=== PATIENT | female | born 1980 | race Caucasian/White ===

== ENCOUNTER 2018-12-10 07:47 | Emergency (ER) | payer BC ==
--- NOTE | 2018-12-10 08:09 | EDM.PDOC ---
ED HPI GENERAL MEDICAL PROBLEM - General Chief Complaint: Back Pain or Injury Stated Complaint: BACK PAIN Time Seen by Provider: 12/10/18 08:09 Source of Information: Reports: Patient History Limitations: Reports: No Limitations - History of Present Illness INITIAL COMMENTS - FREE TEXT/NARRATIVE: 38-year-old female presents to the ED with acute exacerbation of chronic low back pain. Patient states that she's been suffering with low back pain for about 17 years. Seem to have developed some trauma after 17 years ago and has a confirmed herniated disc on MRI done at that time. Back pain is been coming intermittently off and on for the last 17 years. However for the last 5- 6 week she's had constant pain that seems to be progressively worsening. Pain is primarily across both sides of her lower back and perhaps is slightly worse on the right side as compared to the left. Pain radiates down to the but talks and posterior lateral thighs on both sides but not below the knee. Patient has no change in bowel or bladder function and has control of both. Pain was so bad she could not sleep at all last night. 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 Onset: Gradual Onset Date: 10/23/18 Duration: Week(s):, Chronic, Getting Worse Location: Reports: Back (Increasing constant low back pain for the last 6 weeks) Quality: Reports: Ache, Pressure, Throbbing Severity: Severe Improves with: Reports: None Worsens with: Reports: None Context: Denies: Activity, Exercise, Lifting, Sick Contact, Trauma, Other Associated Symptoms: Reports: Weakness. Denies: No Other Symptoms, Confusion, Chest Pain, Cough, cough w sputum, Diaphoresis, Fever/Chills, Headaches, Loss of Appetite, Malaise, Nausea/Vomiting, Seizure, Shortness of Breath, Syncope Treatments [employer]ING [employer]PER[employer]OR: Reports: Acetaminophen, NSAIDS Bilateral Lower Back Pain Score (Numeric/FACES): 10 - Related Data Allergies Allergy/AdvReac Type Severity Reaction Status Date / Time No Known Allergies Allergy Verified 12/10/18 08:01 Home Meds: Home Meds Diclofenac Sodium [Voltaren] 50 mg PO TID #30 tab.ec 12/10/18 [Rx] Magnesium Oxide [Magnesium] 400 mg PO DAILY 12/10/18 [History] oxyCODONE HCl/Acetaminophen [Percocet 10-325 mg Tablet] 1 each PO Q4H #24 tablet 12/10/18 [Rx] predniSONE [Deltasone] 20 mg PO ASDIRECTED #18 tablet 12/10/18 [Rx] Past Medical History - Past Health History Medical/Surgical History: Denies Medical/Surgical History Musculoskeletal History: Reports: Back Pain, Chronic Other Musculoskeletal History: Herniated disc Social & Family History - Tobacco Use Smoking Status *Q: Never Smoker Second Hand Smoke Exposure: No - Caffeine Use Caffeine Use: Reports: None - Recreational Drug Use Recreational Drug Use: No - Living Situation & Occupation Occupation: Employed ED ROS GENERAL - Review of Systems Review Of Systems: See Below Constitutional: Reports: No Symptoms HEENT: Reports: No Symptoms Respiratory: Reports: No Symptoms Cardiovascular: Reports: No Symptoms Endocrine: Reports: Fatigue GI/Abdominal: Reports: No Symptoms : Reports: No Symptoms Musculoskeletal: Reports: Back Pain, Joint Pain Skin: Reports: No Symptoms (Occasional knees and hips) Neurological: Reports: Paresthesia (Some paresthesias in the but talks and posterior lateral aspects of the legs bilaterally.) Psychiatric: Reports: No Symptoms Hematologic/Lymphatic: Reports: No Symptoms Immunologic: Reports: No Symptoms ED EXAM,LOWER BACK PAIN/INJURY - Physical Exam Exam: See Below Exam Limited By: No Limitations General Appearance: Alert, Moderate Distress (She is tearful at the time of examination. She reports no sleep last night.) Eye Exam: Bilateral Eye: Normal Inspection, PERRL Back Exam: Normal Inspection, Decreased Range of Motion (Patient has loss of forward flexion of 40. She can just touch the upper anterior thighs. Extending the back makes the pain much worse. She nearly collapsed.), Paraspinal Tenderness (Very mild paraspinal tenderness along the lower lumbar vertebra bilaterally.). No: Full Range of Motion, CVA Tenderness (L), CVA Tenderness (R) Extremities: Normal Inspection, Other (Straight leg raising is positive at 45 bilaterally but more pain in her back versus radiculopathy down the legs.) Neurological: Alert, CN II-XII Intact, Normal Plantar Flexion, Oriented x 3, Straight Leg Raise (L), Straight Leg Raise (R) (45 45 without radiculopathy. Positive bowstring sign when lifting the right leg.). No: Normal Mood/Affect, Normal Dorsiflexion, Normal Gait, Normal Reflexes DTR - Lower Extremities: 0: Ankle (R), Ankle (L), 1+: Knee (R), Knee (L) Psychiatric: Tearful Skin Exam: Warm, Dry, Intact, Normal Color, No Rash Course - Vital Signs Last Recorded V/S: Last Vital Signs Temp 36.9 C 12/10/18 08:02 Pulse 99 12/10/18 08:02 Resp 18 12/10/18 08:02 BP 156/109 H 12/10/18 08:02 Pulse Ox 99 12/10/18 08:02 - Orders/Labs/Meds Meds: Medications Discontinued Medications Generic Name Dose Route Start Last Admin Trade Name Freq PRN Reason Stop Dose Admin Hydromorphone HCl 1.5 mg 12/10/18 08:16 12/10/18 08:33 Dilaudid IM 12/10/18 08:17 1.5 mg ONETIME ONE Administration Promethazine HCl 25 mg 12/10/18 08:16 12/10/18 08:33 Phenergan IM 12/10/18 08:17 25 mg ONETIME ONE Administration - Radiology Interpretation Free Text/Narrative:: 38-year-old female presents the ED with increasing low back pain over the last 5 -6 weeks. Patient suffers from chronic intermittent low back pain for the last 17 years. She had previous MRI 17 years ago which confirmed bulging disc. No recent falls or injuries. She reports pain across her lower back and referred into both lower extremities in the posterior lateral aspect of the buttock and thighs but not below the knee. Examination shows minimal paraspinal muscle spasm bilaterally. Straight leg raising reveals positive bowstring when lifting the right leg. However I can lift both legs to 45 which causes pain in her low back but not necessarily radiculopathy down the leg. This suggests more of a degenerative change or facet joint syndrome. She may well have a central disc herniation however as both legs are affected. This would be the L5 disc most likely. She is very heavyset. I will therefore arrange for MRI of her lumbar spine versus doing CT and MRI. She will be given a I am injection of Dilaudid 1.5 mg with Phenergan 25 mg IM for pain relief at this time. I will set up outpatient MRI to be done within this week hopefully. Is also be sent to nurse practitioner ( Krysta) in [facility] as her children go to the clinic and she resides in [place] - Re-Assessments/Exams Free Text/Narrative Re-Assessment/Exam: 12/10/18 08:51 patient is starting to get some relief from the IM analgesia. MRI has been booked for December 12 at 0900 hrs. in the morning. Results will be sent to [facility]-- Marilynn Oneal nurse practitioner. Discharged home on Voltaren 50 mg 3 times a day for 10 days. Deltasone 20 mg a.m. and p.m. for 6 days and then once in the morning for another 6 days. Percocet 10/325 mg tablets one every 4-6 hours needed for pain relief 24 tablets. Departure - Departure Time of Disposition: 08:32 Disposition: Home, Self-Care 01 Condition: Fair Clinical Impression: Back pain of lumbosacral region with sciatica - Discharge Information *PRESCRIPTION DRUG MONITORING PROGRAM REVIEWED*: No *COPY OF PRESCRIPTION DRUG MONITORING REPORT IN PATIENT EFRAÍN: No Prescriptions: Diclofenac Sodium [Voltaren] 50 mg PO TID #30 tab.ec oxyCODONE HCl/Acetaminophen [Percocet 10-325 mg Tablet] 1 each PO Q4H #24 tablet predniSONE [Deltasone] 20 mg PO ASDIRECTED #18 tablet Referrals: PCP,None [Primary Care Provider] - Forms: ED Department Discharge Additional Instructions: Evaluation the emergency room this morning in regards to gradually worsening low back pain over the last 5-6 weeks. It radiates across both sides of your lower back and upper buttock area. Difficult to localize one side being worse than the other. 3 leg raising was also negative which suggest no nerve root entrapment on one side versus the other. The suspicion is that she may have a central disc herniation pushing on the nerve is where they come down from the spinal cord which ends at the lumbar 2 vertebra. X-rays were not felt to be indicated as they will not show the disks and you have had no injuries to your back bones. Decision made to get to book for MRI of your lower back and this is booked for December 12 at 0900 hrs. They request that you come to the x- ray department about 0830 hrs. for paperwork. In the ED received an injection for pain called Dilaudid 1.5 mg with Phenergan 25 mg as an antinausea and and muscle relaxant. Treatment at home is to be Voltaren 50 mg 3 times daily for the next 10 days to relieve pain and inflammation. Also Deltasone steroid 20 mg with breakfast and supper for 6 days and then once in the morning only for another 6 days in the hopes of relieving inflammation of the disc and nerve root. Pain medication is Percocet 10/325 mg strength ideally one tablet every 4- 6 hours as necessary for pain relief. He should not operate a motor vehicle if you are taking these tablets as they can make you impaired. Suggest follow-up with Krysta Oneal at [facility] ideally Sunday as will have the MRI report sent to her after his completed on .
[2018-12-10] MEDS ORDERED: HYDROmorphone 1 MG/ML Syringe IM ONE (08:16)
[2018-12-10] MEDS ORDERED: Promethazine 25 MG/ML SDV IM ONE (08:16)
== END 2018-12-10 09:00 | disposition home or self-care (01) ==
LOC: JD.ED 07:47
DX: M54.41 Lumbago with sciatica, right side (principal); M54.42 Lumbago with sciatica, left side
CPT/HCPCS: 96372; 99283; J1170; J2550; 99284